=== PATIENT | female | born 1995 | race Caucasian/White ===

== ENCOUNTER 2020-07-12 02:59 | Emergency (ER) | payer MEDICAID ==
[~2020-07-12] VITALS: Ht 160 cm; Wt 59.0 kg
--- NOTE | 2020-07-12 03:10 | NUR ---
patient came in complaining of right cervical neck inflammation for two days . no distress , on ra
[2020-07-12] MEDS ORDERED: CEFTRIAXONE 1 G VIAL IM ONE (03:15)
--- NOTE | 2020-07-12 03:15 | NUR ---
patient has a visible surgical incision on the left upper back from previous hospitalization from pneumonia and had a surgical procedure to drain fluid according to the patient
--- NOTE | 2020-07-12 03:15 | NUR ---
dr mishra is t bedside to see the patient
[2020-07-12] MEDS ORDERED: CEFTRIAXONE 1 G VIAL ONE (03:24)
--- NOTE | 2020-07-12 03:25 | NUR ---
rocephin im was only given half doce , patient refused the medication , aware
[2020-07-12] MEDS ORDERED: HYDROCODONE/APAP 5-325MG TABLET ONE (03:39)
[2020-07-12] MEDS ORDERED: HYDROCODONE/APAP 5-325MG TABLET PO ONE (03:45)
--- NOTE | 2020-07-12 03:45 | NUR ---
patient discharged accompanied by a male friend , ambulatory , educated not to drive post norco medication given , verbalizes understanding , only complained of bearable 2/10 pain from the affected site
== END 2020-07-12 03:45 | disposition home or self-care (01) ==
LOC: ER 03:01
DX: I88.9 Nonspecific lymphadenitis, unspecified (principal); L03.111 Cellulitis of right axilla; Z72.0 Tobacco use
CPT/HCPCS: 96372; 99283; J0696; A4663

== ENCOUNTER 2020-07-18 02:46 | Emergency (ER) | payer MEDICAID ==
[~2020-07-18] VITALS: Ht 160 cm; Wt 59.0 kg
[2020-07-18] MEDS ORDERED: [UNRECOGNIZED DRUG - REMARK] (03:07)
[2020-07-18 04:09] VITALS: BP 135/82
--- NOTE | 2020-07-18 04:09 | NUR ---
Patient discharged to home in stable condition. Written and verbal after care instructions given. Patient verbalizes understanding of instructions. Stressed follow up or return to ER for worsening s/s. Patient ambulated with stable gait.
== END 2020-07-18 04:10 | disposition home or self-care (01) ==
LOC: ER 02:51
DX: I88.9 Nonspecific lymphadenitis, unspecified (principal); F17.200 Nicotine dependence, unspecified, uncomplicated
CPT/HCPCS: A4663

== ENCOUNTER 2020-12-20 04:16 | Emergency (ER) | payer MEDICAID ==
[~2020-12-20] VITALS: Ht 170.2 cm; Wt 59.0 kg
[~2020-12-20 04:16] MED LIST: [UNRECOGNIZED DRUG - REMARK]
--- NOTE | 2020-12-20 04:40 | NUR ---
MD SANDHU in room to see patient.
[2020-12-20] MEDS ORDERED: SULFAMETH/TRIMETH 800/160 MG TABLET PO ONE (04:45)
[2020-12-20] MEDS ORDERED: SULFAMETH/TRIMETH 800/160 MG TABLET ONE (04:49)
[2020-12-20 04:54] VITALS: BP 130/83
--- NOTE | 2020-12-20 04:54 | NUR ---
Patient discharged to home in stable condition. Written and verbal after care instructions given. Patient verbalizes understanding of instructions. Stressed follow up or return to ER for worsening s/s. Patient received Rx, ambulates without difficulty, and left with all belongings.
== END 2020-12-20 04:54 | disposition home or self-care (01) ==
LOC: ER 04:17
DX: S81.801A Unspecified open wound, right lower leg, initial encounter (principal); L08.9 Local infection of the skin and subcutaneous tissue, unspecified; X58.XXXA Exposure to other specified factors, initial encounter; Y92.89 Other specified places as the place of occurrence of the external cause; F17.200 Nicotine dependence, unspecified, uncomplicated
CPT/HCPCS: A4663